=== PATIENT | male | born 1980 | race Two or more races ===

== ENCOUNTER 2020-06-08 14:57 | Emergency (ER) | payer OTHER ==
[2020-06-08 15:02] VITALS: BP 143/93; PULSE 74; TEMP 98.5; BMI 26.7
--- OUTSIDE RECORDS SUMMARY | 2020-06-08 15:25 | XMS ---
:1980 Author Organization [facility] Support Name Relationship Address Phone [facility] Unavailable [address] [place] [address] [place], [place] [address] [facility] [phone] [place] [address] Re-disclosure Warning The records that you are about to access may contain information from federally- assisted alcohol or drug abuse programs. If such information is present, then the following federally mandated warning applies: This information has been disclosed to you from records protected by federal confidentiality rules (42 CFR part 2). The federal rules prohibit you from making any further disclosure of this information unless further disclosure is expressly permitted by the written consent of the person to whom it pertains or as otherwise permitted by 42 CFR part 2. A general authorization for the release of medical or other information is NOT sufficient for this purpose. The Federal rules restrict any use of the information to criminally investigate or prosecute any alcohol or drug abuse patient.The records that you are about to access may contain highly sensitive health information, the redisclosure of which is protected by Article 27-F of the [facility] Public Health law. If you continue you may haveaccess to information: Regarding HIV / AIDS; Provided by facilities licensed or operated by the [facility] Office of Mental Health; or Provided by the [facility] Office for People With Developmental Disabilities. If such information is present, then the following [facility] mandated warning applies: This information has been disclosed to you from confidential records which are protected by state law. State law prohibits you from making any further disclosure of this information without the specific written consent of the person to whom it pertains, or as otherwise permitted by law. Any unauthorized further disclosure in violation of state law may result in a fine or half-way sentence or both. A general authorization for the release of medical or other information is NOT sufficient authorization for further disclosure. Insurance Providers Payer name Policy type Policy ID Covered Covered democrat's Policy P tracie / Coverage democrat ID relationship to [facility] [employer] ormation type [facility] ANA PAULA [id number] [employer] ANA PAULA [id number] 800 [employer] NON CAP
--- NOTE | 2020-06-08 15:42 | PDOC ---
History of Present Illness - General Chief Complaint: Pain Stated Complaint: R HAND 4TH, 5TH DIGIT FINGER NUMBNESS - History of Present Illness Initial Comments: 06/08/20 15:38 40 years old no past medical history presents to the ED with 1 to 2-week history of numbness and tingling over his right pinky finger and ring finger. Patient is right-hand dominant works at a [employer] uses his hand often during the day his symptoms are worse after high use at work and worse after waking up in the morning They are better with rest and when he keeps his hand straight. Denies headache chest pain shortness of breath nausea vomiting diarrhea Past History - Medical History Allergies/Adverse Reactions: Allergies Allergy/AdvReac Type Severity Reaction Status Date / Time No Known Allergies Allergy Verified 12/21/13 21:53 Home Medications: Ambulatory Orders Acetaminophen W/ Codeine #3 [Tylenol # 3] 1 combo PO Q4H PRN #14 tablet 01/31/14 COPD: No - Immunization History Immunization Up to Date: Yes - Psycho-Social/Smoking History Smoking History: Never smoked Have you smoked in the past 12 months: No Number of Cigarettes Smoked Daily: 10 Information on smoking cessation initiated: No 'Breaking Loose' booklet given: 01/31/14 - Substance Abuse Hx (Audit-C & DAST Scrn) How often the patient has a drink containing alcohol: Never Score: In Men: 4 or > Positive; In Women: 3 or > Positive: 0 Screen Result (Pos requires Nsg. Audit-10AR): Negative In the last yr the pt used illegal drug/Rx for NonMed reason: No Score: Yes response is considered Positive: 0 Screen Result (Positive result requires Nsg. DAST-10): Negative Review of Systems - Review of Systems Comments:: 06/08/20 15:39 ROS: A complete review of 10 out of 10 review of systems is taken and is negative apart from what is previously mentioned below and in the HPI. *Physical Exam - Vital Signs Last Vital Signs Temp Pulse Resp BP Pulse Ox 98.5 F 74 18 143/93 100 06/08/20 15:00 06/08/20 15:00 06/08/20 15:00 06/08/20 15:00 06/08/20 15:00 - Physical Exam 06/08/20 15:40 Vitals: Triage Vital signs reviewed General Appearance: No acute distress, well nourished well developed, Head: Atraumatic, Extremities: Full range of motion to all extremities, no cyanosis, clubbing, or edema Skin: Warm and dry, no rashes or lesions, no rash, no petechiae Neuro: AOX3; cranial Nerves 2-12 grossly intact, strength intact to all extremities, Decreased sensation to right pinky and index finger, gait normal Psych: Normal mood, normal affect Medical Decision Making - Medical Decision Making 06/08/20 15:40 Reproducible tingling and paresthesia to right index and index finger with flexion of wrist. No other neurologic findings history and examination most consistent with at this time with carpal tunnel syndrome. Recommend short course of NSAIDs wrist splint and orthopedic follow-up Findings, need for follow-up and strict return instructions discussed with patient. Discharge - Discharge Information Problems reviewed: Yes Clinical Impression/Diagnosis: Carpal tunnel syndrome Qualifiers: Laterality: right Qualified Code(s): G56.01 - Carpal tunnel syndrome, right upper limb Condition: Unchanged/Unknown Disposition: HOME - Admission No - Follow up/Referral Referrals: Harjit Bradley MD [Staff Physician] - - Patient Discharge Instructions Patient Printed Discharge Instructions: Carpal Tunnel Syndrome Additional Instructions: Wear a wrist splint on your right hand as much as possible especially at night. Take [id number] Motrin for the next 3 to 5 days as directed on package. Follow-up with Dr. Kirk lopes within 1 week. Return to ED for any severe worsening symptoms or for any concerns. - Post Discharge Activity
== END 2020-06-08 15:47 | disposition home or self-care (01) ==
LOC: FER 14:57
DX: G56.01 Carpal tunnel syndrome, right upper limb (principal)
CPT/HCPCS: 99282-25